=== PATIENT | female | born 1980 | race Caucasian/White ===

== ENCOUNTER 2017-09-30 12:28 | Inpatient (IN) | payer MEDICAID ==
[2017-09-30] MEDS ORDERED: DEXTROSE 5%-LR 1,000 ML IV ×2 (12:47→13:06)
[2017-09-30] MEDS ORDERED: LIDOCAINE 1% (MPF) 30 ML INJ INJ ×2 (13:00)
[2017-09-30] MEDS ORDERED: MISOPROSTOL 200 MCG TAB PR ×2 (13:00)
[2017-09-30] MEDS ORDERED: BUTORPHANOL 2 MG INJ IV ×3 (13:00)
[2017-09-30] MEDS ORDERED: IBUPROFEN 600 MG TAB PO ×2 (13:00)
[2017-09-30] MEDS ORDERED: METHYLERGONOVINE 0.2 MG INJ IM (13:00)
[2017-09-30] MEDS ORDERED: CARBOPROST 250 MCG INJ IM ×2 (13:00)
[2017-09-30] MEDS ORDERED: OXYTOCIN 30 UNITS/LR 500 ML IV ×2 (13:00)
[2017-09-30] MEDS: LACTATED RINGER'S 1,000 ML IV (13:34)
[2017-09-30 13:49] LABS: ADD MAN DIFF? NO
[2017-09-30 13:53] LABS: WHITE BLOOD COUNT 11.5 10^3/ul (4.8-10.8)
[2017-09-30 13:53] LABS: BASOPHILS % 0.2 % (0.0-2.0); EOSINOPHILS % 0.3 % (0.0-7.0); HEMATOCRIT 37.5 % (37.0-47.0); HEMOGLOBIN 12.6 g/dl (12.0-16.0); LYMPHOCYTES # 1.6 10^3/ul (0.8-2.9); LYMPHOCYTES % 13.7 % (15.0-51.0); MEAN CORPUSCULAR HEMOGLOBIN 28.5 pg (29.0-33.0); MEAN CORPUSCULAR HGB CONC 33.6 g/dl (32.0-37.0); MEAN CORPUSCULAR VOLUME 84.8 fl (82.0-101.0); MEAN PLATELET VOLUME 11.2 fl (7.4-10.4); MONOCYTE # 0.8 10^3/ul (0.3-0.9); MONOCYTES % 7.2 % (0.0-11.0); NEUTROPHILS % 78.3 % (39.0-77.0); PLATELET COUNT 262 10^3/UL (140-415); RED BLOOD COUNT 4.42 10^6/ul (4.20-5.40); RED CELL DISTRIBUTION WIDTH 12.9 % (11.5-14.5)
[2017-09-30 14:13] LABS: INR 0.88; PT RATIO 0.9
[2017-09-30 14:14] LABS: PARTIAL THROMBOPLASTIN TIME 28.2 Sec (25.0-35.0)
[2017-09-30 14:14] LABS: URIC ACID 4.8 mg/dl (3.1-7.9)
[2017-09-30 14:45] LABS: HEPATITIS B SURFACE ANTIGEN NEGATIVE (NEGATIVE)
[2017-09-30 15:18] LABS: FIBRIN SPLIT PRODUCT <10 ug/ml (<10)
[2017-09-30] MEDS: OXYTOCIN 30 UNITS/LR 500 ML IV ×3 (15:33→17:18)
[2017-09-30] MEDS: METHYLERGONOVINE 0.2 MG INJ IM (16:34)
[2017-09-30] MEDS ORDERED: OXYCODONE/ASPIRIN (4.88/325) TAB PO ×2 (17:30)
[2017-09-30] MEDS ORDERED: ONDANSETRON 4 MG INJ IV (17:30)
[2017-09-30] MEDS ORDERED: ACETAMINOPHEN 325 MG TAB PO (17:30)
[2017-09-30] MEDS ORDERED: HYDROCODONE/APAP (5/325) TAB PO (17:30)
[2017-09-30] MEDS ORDERED: WITCH HAZEL/GLYCERIN PAD PR (17:30)
[2017-09-30] MEDS ORDERED: DIBUCAINE 1% 30 GM OINT PR (17:30)
[2017-09-30] MEDS: LANOLIN 7 GM TUBE TOP (17:56)
[2017-09-30] MEDS: BENZOCAINE 20% 56 ML SPRAY TOP (17:57)
[2017-09-30] MEDS: IBUPROFEN 600 MG TAB PO (17:57)
[2017-09-30 19:06] LABS: RAPID PLASMA REAGIN NONREACTIVE (NR)
[2017-09-30] MEDS: HYDROCODONE/APAP (5/325) TAB PO (20:37)
[2017-10-01] MEDS: IBUPROFEN 600 MG TAB PO ×4 (05:42→18:43)
[2017-10-01 08:26] LABS: ADD MAN DIFF? NO
[2017-10-01 08:36] LABS: WHITE BLOOD COUNT 11.4 10^3/ul (4.8-10.8)
[2017-10-01 08:36] LABS: BASOPHILS % 0.3 % (0.0-2.0); EOSINOPHILS # 0.1 10^3/ul (0.0-0.5); EOSINOPHILS % 0.7 % (0.0-7.0); HEMATOCRIT 31.2 % (37.0-47.0); HEMOGLOBIN 10.5 g/dl (12.0-16.0); LYMPHOCYTES % 17.8 % (15.0-51.0); MEAN CORPUSCULAR HEMOGLOBIN 28.7 pg (29.0-33.0); MEAN CORPUSCULAR HGB CONC 33.7 g/dl (32.0-37.0); MEAN CORPUSCULAR VOLUME 85.2 fl (82.0-101.0); MEAN PLATELET VOLUME 11.1 fl (7.4-10.4); MONOCYTE # 0.8 10^3/ul (0.3-0.9); MONOCYTES % 6.7 % (0.0-11.0); NEUTROPHIL # 8.5 10^3/ul (1.6-7.5); NEUTROPHILS % 73.9 % (39.0-77.0); PLATELET COUNT 206 10^3/UL (140-415); RED BLOOD COUNT 3.66 10^6/ul (4.20-5.40)
[2017-10-01] MEDS: SENNA/DOCUSATE NA (8.6MG/50MG) TAB PO ×2 (11:43→20:46)
[2017-10-02] MEDS: IBUPROFEN 600 MG TAB PO ×2 (00:17→05:59)
[2017-10-02] MEDS: SENNA/DOCUSATE NA (8.6MG/50MG) TAB PO (09:00)
[2017-10-02] MEDS: MEASLES,MUMPS,RUBELLA VACCINE INJ SC* (09:00)
== END 2017-10-02 12:15 | disposition home or self-care (01) | DRG 775 ==
LOC: OBT 12:28 → L-D 12:30 → OBT 12:42 → L-D 12:30 → PP1 16:53
PROVIDERS: Obstetrics & Gynecology
PROC: 10E0XZZ Delivery of Products of Conception, External Approach (ICD-10-PCS; principal; 2017-10-01)
PROC: 3E033VJ Introduction of Other Hormone into Peripheral Vein, Percutaneous Approach (ICD-10-PCS; 2017-10-01)
DX: O69.81X0 Labor and delivery complicated by cord around neck, without compression, not applicable or unspecified (principal); Z37.0 Single live birth; Z3A.39 39 weeks gestation of pregnancy
CPT/HCPCS: 76815; 82962; 84560; 85025; 85362; 85610; 85730; 86592; 86900; 86901; 87340

== ENCOUNTER 2017-11-13 11:10 | Day surgery (SDC) | payer MEDICAID ==
[2017-11-13] MEDS ORDERED: BUPIVACAINE 0.25%/EPI (SDV) 30 ML INJ (16:13)
== END 2017-11-13 16:55 | disposition home or self-care (01) ==
LOC: SDS 11:10
DX: Z30.2 Encounter for sterilization (principal); Z53.9 Procedure and treatment not carried out, unspecified reason